=== PATIENT | male | born 1965 | race Caucasian/White ===

== ENCOUNTER 2017-01-27 15:40 | Emergency (ER) | payer OTHER, SELFPAY ==
[~2017-01-27] VITALS: Ht 185.4 cm; Wt 91.4 kg
[2017-01-27] MEDS ORDERED: SODIUM CHLORIDE FLUSH 10ML SYR IVF ONE (16:30)
[2017-01-27] MEDS ORDERED: SODIUM CHLORIDE 0.9% 1,000ML IVBOLUS ONE (16:30)
[2017-01-27] MEDS ORDERED: LABETALOL 5MG/ML, 20ML ONE (17:13)
[2017-01-27 17:17] LABS: HEMATOCRIT 48.8 % (39.2-51.8); HEMOGLOBIN 16.7 g/dL (13.7-18.0); WHITE BLOOD COUNT 6.5 x10^3/uL (3.4-10)
[2017-01-27 17:19] LABS: BLOOD UREA NITROGEN 22 mg/dL (7-18)
[2017-01-27] MEDS ORDERED: LISI2.5T PO (17:26)
[2017-01-27] MEDS ORDERED: LABETALOL 5MG/ML, 20ML IVPush ONE (17:30)
[2017-01-27] MEDS ORDERED: CHLORDIAZEPOXIDE 25 MG CAPSULE PO ONE (18:00)
[2017-01-27 18:41] VITALS: BP 165/115
== END 2017-01-27 18:26 | disposition home or self-care (01) ==
LOC: ED 17:53
DX: F10.239 Alcohol dependence with withdrawal, unspecified (principal); F19.10 Other psychoactive substance abuse, uncomplicated; I10 Essential (primary) hypertension
CPT/HCPCS: 36415; 80048; 82040; 85025; 93005; 96361; 96374; 99285; J7030